=== PATIENT | male | born 1965 | race Hispanic/Latino ===

== ENCOUNTER 2022-10-25 13:23 | Emergency (ER) | payer OTHER, SELFPAY ==
[2022-10-25 13:58] VITALS: BP 141/87; PULSE 97; RESP 16; TEMP 36.9; O2SAT 98
--- NOTE | 2022-10-25 14:49 | ED.SKABFB ---
HPI - Skin/Abscess/Foreign Bdy General Chief complaint: Skin/Abscess/Foreign Body Stated complaint: poison mel Time Seen by Provider: 10/25/22 14:35 History of Present Illness HPI narrative: Patient is a 57-year-old male who presents to the ER with reports of poison mel. Ongoing for the last 2 days. He works in [employer]. He has itching and rash to his face under his eyes as well as bilateral upper extremities. No difficulty breathing or swallowing. Related Data Allergies Allergy/AdvReac Type Severity Reaction Status Date / Time No Known Allergies Allergy Verified 10/25/22 14:35 Review of Systems Constitutional: Constitutional: Denies chills and Denies fever(s) Respiratory: Respiratory: Denies cough, Denies dyspnea and Denies wheezing Integumentary/Breasts: Skin/Breast: Reports pruritus, Reports erythema and Reports rash PMFSH Past Medical History Medical History (Updated 10/25/22 @ 21:33 by Toamsz Vickers MD) Healthy adult male Surgical History Surgical History (Updated 10/25/22 @ 21:33 by Tomasz Vickers MD) No history of previous surgery Exam Narrative: GENERAL: Well-appearing, well-nourished, and in no acute distress. HEAD: Normocephalic, atraumatic. EYES: PERRL and EOMI. ENT: Mucous membranes moist. CHEST: Clear to auscultation. No respiratory distress. HEART: Regular rate and rhythm. Normal peripheral pulses. EXTREMITIES: Normal range of motion. No edema. SKIN: Warm, dry, contact dermatitis rash to bilateral forearms volar aspect as well as inferior to the eyes bilaterally. NEURO: Alert and oriented x3. PSYCH: Normal mood and affect. Course Vital Signs Vital signs: Vital Signs Temperature 98.4 F 10/25/22 13:58 Pulse Rate 97 10/25/22 13:58 Respiratory Rate 16 10/25/22 13:58 Blood Pressure 141/87 H 10/25/22 13:58 Pulse Oximetry 98 10/25/22 13:58 Temperature 98.4 F 10/25/22 13:58 Pulse Rate 74 10/25/22 15:01 Respiratory Rate 18 10/25/22 15:01 Blood Pressure 145/98 H 10/25/22 15:01 Pulse Oximetry 99 10/25/22 15:01 Discharge Plan Discharge Clinical Impression: Contact dermatitis Patient Disposition: Home, Self-Care Condition: Stable Instructions: Poison Mel (ED) Additional Instructions: Return the ER if he cannot breathe, cannot swallow, you have chest pain or shortness of breath, you have additional concerns. Use topical hydrocortisone and oral Benadryl as needed. You are being started on oral prednisone. Prescriptions: New prednisone 50 mg tablet 50 mg PO DAILY Qty: 7 0RF Follow-up/Referrals: PHYSICIAN NOT ON STAFF,NONSTAFF [Primary Care Provider] - 1 Week
[2022-10-25 15:01] VITALS: BP 145/98; PULSE 74; RESP 18; O2SAT 99
== END 2022-10-25 15:06 | disposition home or self-care (01) ==
LOC: ANHED 14:52
PROVIDERS: Emergency Provider Emergency Medicine
DX: L23.7 Allergic contact dermatitis due to plants, except food (principal)
CPT/HCPCS: 99283